=== PATIENT | male | born 1965 | race Caucasian/White ===

== ENCOUNTER 2019-11-08 12:20 | Outpatient (CLI) | payer BC ==
[~2019-11-08 12:20] MED LIST: CEPHALEXIN500 M1 PO; NO HOME MEDICATIONS; SEPTRA DS 8001 TAB PO
== END 2019-11-09 ==
LOC: COL.CARD
DX: R00.1 Bradycardia, unspecified (principal)

== ENCOUNTER → 2019-11-23 | Outpatient (CLI) | payer BC | LOC: COL.VAS 12:58 | DX: I10 Essential (primary) hypertension (principal); I08.1 Rheumatic disorders of both mitral and tricuspid valves ==

== ENCOUNTER 2021-02-05 23:56 | Observation (INO) | payer BC ==
[~2021-02-05] VITALS: Ht 167.6 cm; Wt 97.7 kg
[2021-02-06 00:16] LABS: BASO % 0.3 % (0.0-2.0); EOS # 0.3 K/mm3 (0.0-0.7); EOS % 3.3 % (0-4.0); GRAN # 5.6 K/mm3 (1.4-6.5); GRAN % 57.6 % (42.2-75.2); HEMATOCRIT 44.7 % (42.0-52.0); HEMOGLOBIN 14.8 g/dl (13.5-18.0); LYMPH # 3.1 K/mm3 (1.2-3.4); LYMPH % 32.1 % (20.0-51.0); MEAN CELL VOLUME 88 fl (80.0-100.0); MEAN CORPUSCULAR HEMOGLOBIN 29 pg (27.0-31.0); MEAN CORPUSCULAR HGB CONC 33 g/dl (33.0-37.0); MEAN PLATELET VOLUME 9.5 fl (7.4-10.4); MONO # 0.6 K/mm3 (0.1-0.6); MONO % 6.3 % (1.7-9.3); PLATELET COUNT 321 K/mm3 (130-400); RED BLOOD COUNT 5.09 M/mm3 (4.20-5.60); REDCELL DISTRIBUTION WIDTH-CV 12.3 % (11.5-14.5)
[2021-02-06 00:38] LABS: ALANINE AMINOTRANSFERASE 16 U/L (0-55); ALBUMIN 4.3 gm/dL (3.5-5.0); ALKALINE PHOSPHATASE 66 U/L (40-150); ANION GAP 12 mmol/L (7-16); AST,SGOT 16 U/L (5-34); BILIRUBIN,TOTAL 0.5 mg/dL (0.2-1.2); BLOOD UREA NITROGEN 16 mg/dL (8-26); CALCIUM 9.1 mg/dL (8.4-10.2); CARBON DIOXIDE 24 mmol/L (22-29); CHLORIDE 105 mmol/L (98-107); CREATININE, serum 1.03 mg/dL (0.72-1.25); GLUCOSE 119 mg/dL (70-99); LIPASE 35 U/L (8-78); POTASSIUM 4.1 mmol/L (3.5-4.5); SODIUM 141 mmol/L (136-145); TOTAL PROTEIN 7.4 gm/dL (6.2-8.1)
[2021-02-06 00:47] LABS: TROPONIN-I < 0.010 ng/mL (0.00-0.033)
[2021-02-06 01:40] LABS: COLLECTION METHOD CLEAN CATCH
[2021-02-06 01:47] LABS: MUCOUS Present (NOT PRESENT); PH 6 (5-8); SQUAMOUS EPITHELIAL None Seen /hpf (0-10); URINE APPEARANCE Clear (CLEAR/HAZY); URINE BACTERIA None Seen (NONE SEEN); URINE BILIRUBIN Negative (NEGATIVE); URINE BLOOD Negative (NEGATIVE); URINE COLOR Straw (YELLOW); URINE GLUCOSE Negative (NEGATIVE); URINE KETONE Negative (NEGATIVE); URINE LEUKOCYTE ESTERASE Negative (NEGATIVE); URINE NITRATE Negative (NEGATIVE); URINE PROTEIN(semi-quant) Negative (NEGATIVE); URINE RBC 0-2 /hpf (0-2); URINE UROBILINOGEN Negative (NEGATIVE)
[2021-02-06] MEDS ORDERED: PRINIVIL10 MG PO (01:59)
[2021-02-06] MEDS ORDERED: ASPIRIN 81M81 MG/TA2 PO (02:00)
[2021-02-06] MEDS ORDERED: EPA FISH OIL1 SGL PO (02:00)
--- NOTE | 2021-02-06 02:55 | NUR ---
Pt arrived via w/c from ED to room 329. Is alert and oriented x4. Has SL to left AC, flushes well. Reports pain 3/10 to upper abd. Will be NPO for possible surgery today.
--- NOTE | 2021-02-06 05:52 | NUR ---
PT AWAKE, DENIES NEED FOR PAIN MEDS AT THIS TIME.
[2021-02-06 07:29] VITALS: BP 135/75; PULSE 58; TEMP 98.1
--- NOTE | 2021-02-06 09:32 | NUR ---
emergency worker met with patient to discuss discharge plan. Patient states he lives at home with his Bel ([phone]) in [place]. Patient reports that prior this this he is fully independent with his activities of daily living and he does not utilize any DME or oxygen. PCP is Jane Driscoll and he utilizes [facility] for persciptions with no cost difficulty. Patient reports that he does not have a DPOA-HC established and verbalizes that it would be his Bel. Patient does have children and education was provided surrounding a DPOA-HC. Patient is not interested in establishing one at this time. Patient is planning on returning home with his Bel. Discharge plan: Home
--- NOTE | 2021-02-06 09:48 | NUR ---
Patient alert and oriented, answers questions appropriately. See assessment. Abdomen soft, non tender, non distended. Bowel sounds hyperactive x4 quads. +Flatus. No c/o abdominal pain or pressure. No other c/o at this time.
[2021-02-06] MEDS ORDERED: COLACE 100100 MG/CAP PO (11:13)
[2021-02-06] MEDS ORDERED: MIRALAX238G PO (11:14)
[2021-02-06] MEDS ORDERED: METAMUCIL3.4 GM/Dos PO (11:15)
[2021-02-06 11:42] VITALS: BP 140/83; PULSE 69; TEMP 98.1
--- NOTE | 2021-02-06 11:47 | NUR ---
Discharge instructions reviewed with patient and family, verbalized understanding. Discharged ambulatory to auto/home with family at 1147.
== END 2021-02-06 11:47 | disposition home or self-care (01) ==
LOC: COL.ER 23:56 → SURG 02-06 02:01
PROVIDERS: Emergency Medicine; ADMIT Surgery
DX: I10 Essential (primary) hypertension (principal); R10.32 Left lower quadrant pain; Z79.82 Long term (current) use of aspirin; Z79.899 Other long term (current) drug therapy
CPT/HCPCS: G0378; J2270; J2405; J2543; J2765; J7030; Q9967

== ENCOUNTER 2021-02-21 01:03 | Observation (INO) | payer BC ==
[~2021-02-21] VITALS: Ht 167.6 cm; Wt 94.4 kg
[2021-02-21] VITALS (11 sets, daily range): BP systolic 106–153; BP diastolic 45–86; PULSE 60–82; TEMP 98.1–99.2
[~2021-02-21 01:03] MED LIST changes: +ASPIRIN 81M81 MG/TA2 PO; +COLACE 100100 MG/CAP PO; +EPA FISH OIL1 SGL PO; +METAMUCIL3.4 GM/Dos PO; +MIRALAX238G PO; +PRINIVIL10 MG PO
[2021-02-21 01:50] LABS: BASO % 0.3 % (0.0-2.0); EOS # 0.2 K/mm3 (0.0-0.7); EOS % 1.3 % (0-4.0); GRAN # 9.3 K/mm3 (1.4-6.5); GRAN % 77.4 % (42.2-75.2); HEMATOCRIT 44.1 % (42.0-52.0); HEMOGLOBIN 14.6 g/dl (13.5-18.0); LYMPH # 1.6 K/mm3 (1.2-3.4); LYMPH % 13.1 % (20.0-51.0); MEAN CELL VOLUME 87 fl (80.0-100.0); MEAN CORPUSCULAR HEMOGLOBIN 29 pg (27.0-31.0); MEAN CORPUSCULAR HGB CONC 33 g/dl (33.0-37.0); MONO # 0.9 K/mm3 (0.1-0.6); MONO % 7.7 % (1.7-9.3); PLATELET COUNT 419 K/mm3 (130-400); RED BLOOD COUNT 5.05 M/mm3 (4.20-5.60); REDCELL DISTRIBUTION WIDTH-CV 12.2 % (11.5-14.5)
[2021-02-21 01:51] LABS: COLLECTION METHOD CLEAN CATCH
[2021-02-21 01:58] LABS: MUCOUS Present (NOT PRESENT); PH 5 (5-8); SQUAMOUS EPITHELIAL None Seen /hpf (0-10); URINE APPEARANCE Clear (CLEAR/HAZY); URINE BACTERIA None Seen (NONE SEEN); URINE BILIRUBIN Negative (NEGATIVE); URINE BLOOD 1+ (NEGATIVE); URINE COLOR Yellow (YELLOW); URINE GLUCOSE Negative (NEGATIVE); URINE KETONE Negative (NEGATIVE); URINE LEUKOCYTE ESTERASE Negative (NEGATIVE); URINE NITRATE Negative (NEGATIVE); URINE PROTEIN(semi-quant) Negative (NEGATIVE); URINE UROBILINOGEN Negative (NEGATIVE)
[2021-02-21 02:27] LABS: ALANINE AMINOTRANSFERASE 69 U/L (0-55); ALBUMIN 4.4 gm/dL (3.5-5.0); ALKALINE PHOSPHATASE 86 U/L (40-150); ANION GAP 12 mmol/L (7-16); AST,SGOT 102 U/L (5-34); BILIRUBIN,TOTAL 1.4 mg/dL (0.2-1.2); BLOOD UREA NITROGEN 12 mg/dL (8-26); CALCIUM 9.1 mg/dL (8.4-10.2); CARBON DIOXIDE 22 mmol/L (22-29); CHLORIDE 103 mmol/L (98-107); CREATININE, serum 1.02 mg/dL (0.72-1.25); GLUCOSE 127 mg/dL (70-99); LIPASE 15 U/L (8-78); SODIUM 137 mmol/L (136-145); TOTAL PROTEIN 8.1 gm/dL (6.2-8.1)
[2021-02-21 02:44] LABS: TROPONIN-I < 0.010 ng/mL (0.00-0.033)
--- NOTE | 2021-02-21 05:47 | NUR ---
RECEIVED REPORTS FROM MARIA ESTHER Suggs RN. PATIENT TRANSPORTED TO ROOM 317 FOR ADMISSION. PATIENT C/O ABD PAIN THAT RADIATES ACROSS ABD. AT BED SIDE.
--- NOTE | 2021-02-21 06:15 | NUR ---
PATIENT REQUESTED/GIVEN PAIN MED, SEE MAR FOR MED GIVEN. OBSERVED PATIENT DRY HEAVES PRIOR TO PAIN MED GIVEN, DENIED FURTHER C/O NAUSEA. IV FLUIDS ADDED AND INFUSING WITH NO PROBLEMS. AT BED SIDE.
--- NOTE | 2021-02-21 06:53 | NUR ---
CHANGE OF SHIFT REPORT GIVEN TO DAY SHIFT RN, MASSIEL.
--- NOTE | 2021-02-21 09:00 | NUR ---
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
--- NOTE | 2021-02-21 13:55 | NUR ---
PT RETURNED FROM PROCEDURE, VOMITING AT THIS TIME, ZOFRAN GIVEN, IV REDRESSED, IV FLUIDS INFUSING, POST OP VITALS ATTACHED, LUNCH ORDERED FOR PT AND PT , PT DENIES PAIN, NO OTHER NEEDS
--- NOTE | 2021-02-21 15:38 | NUR ---
SW attempted to complete intake on this day. Patient was in procedure and attempted to return to do intake patient was ill. Called patient to complete intake in the afternoon could not reach. SW called spouse Bel [phone] unable to reach. SW will continue to follow to complete intake.
--- NOTE | 2021-02-21 17:59 | NUR ---
PT REPORTS SLIGHT PAIN, BUT DENIES NEED FOR PAIN MEDICATION, EATING PO AND DRINKING. PT HAS NOT HAD NAUSEA SINCE VOMITING AFTER RETURNING FROM PROCEDURE, PT LAP SITES CDI, NO OTHER NEEDS
--- NOTE | 2021-02-21 18:27 | NUR ---
PT WANTING TO TAKE PAIN MEDICATION BEFORE BED, REQUESTED NOW, ALONSO MCKEON
[2021-02-22 00:08] VITALS: BP 133/68; PULSE 65; TEMP 98.1
[2021-02-22 04:38] VITALS: BP 129/77; PULSE 60; TEMP 98.2
--- NOTE | 2021-02-22 06:31 | NUR ---
PT HAD AN UNEVENTFUL NIGHT. PT SLEPT ALL NIGHT, WOKE UP ONCE FOR PAIN MEDICATIONS. STATES PAIN MEDICATION IS EFFECTIVE. CALL LIGHT IN REACH. NO OTHER NEEDS AT THIS TIME.
[2021-02-22 07:01] VITALS: BP 119/65; PULSE 67; TEMP 98.4
--- NOTE | 2021-02-22 07:50 | NUR ---
PT PLEASANT, AOX4, REPORTING PAIN 7/10 IN ABD NORCO GIVEN, ABD SOFT, BANDAIDS CDI, ASSESSMENT PERFORMED, MEDICATIONS GIVEN, NO OTHER NEEDS
[2021-02-22 08:10] LABS: BASO % 0.3 % (0.0-2.0); EOS # 0.1 K/mm3 (0.0-0.7); EOS % 1.1 % (0-4.0); GRAN # 8.9 K/mm3 (1.4-6.5); GRAN % 76.4 % (42.2-75.2); LYMPH # 1.4 K/mm3 (1.2-3.4); LYMPH % 11.7 % (20.0-51.0); MEAN CELL VOLUME 91 fl (80.0-100.0); MEAN CORPUSCULAR HGB CONC 32 g/dl (33.0-37.0); MEAN PLATELET VOLUME 9.5 fl (7.4-10.4); MONO # 1.2 K/mm3 (0.1-0.6); MONO % 10.2 % (1.7-9.3); RED BLOOD COUNT 4.06 M/mm3 (4.20-5.60); REDCELL DISTRIBUTION WIDTH-CV 12.4 % (11.5-14.5)
[2021-02-22 08:12] LABS: HEMATOCRIT 36.9 % (42.0-52.0); HEMOGLOBIN 11.9 g/dl (13.5-18.0); MEAN CORPUSCULAR HEMOGLOBIN 29 pg (27.0-31.0); PLATELET COUNT 305 K/mm3 (130-400)
[2021-02-22 08:13] LABS: ALBUMIN 3.2 gm/dL (3.5-5.0); BILIRUBIN,TOTAL 0.8 mg/dL (0.2-1.2); CREATININE, serum 0.76 mg/dL (0.72-1.25); POTASSIUM 4.1 mmol/L (3.5-4.5); TOTAL PROTEIN 6.4 gm/dL (6.2-8.1)
[2021-02-22] MEDS ORDERED: LEVAQUIN 5500 MG/TA1 PO (09:58)
[2021-02-22] MEDS ORDERED: NORCO 325 MG-51 TAB PO (09:58)
--- NOTE | 2021-02-22 11:17 | NUR ---
IV REMOVED, PAIN MEDICATIONS GIVEN BEFORE DISCHARGE, EDUCATED ON NEW MEDICATIONS AND NEED TO CALL FOR FOLLOW UP APPT. NO OTHER NEEDS. PT WALKED OUT WITH PT AND ALL OF BELONGINGS.
== END 2021-02-22 11:18 | disposition home or self-care (01) ==
LOC: COL.ER 01:03 → MEDICAL 05:04
PROVIDERS: Physician Assistant; ADMIT Surgery
DX: K81.2 Acute cholecystitis with chronic cholecystitis (principal); K82.A1 Gangrene of gallbladder in cholecystitis; I10 Essential (primary) hypertension; Z20.822 Contact with and (suspected) exposure to COVID-19; Z79.82 Long term (current) use of aspirin; Z79.899 Other long term (current) drug therapy
CPT/HCPCS: G0378; J0690; J1100; J1170; J1885; J1956; J2405; J2704; J3010; J7030; J7120; Q9967